=== PATIENT | male | born 1950 | race Caucasian/White ===

== ENCOUNTER → 2024-06-26 | Outpatient (CLI) | payer MEDICARE, BC, SELFPAY ==
[2024-06-26 14:23] LABS: Basophils % (Auto) 0 % (0-2.5); Eosinophils % (Auto) 1 % (0-10); Hematocrit 40.4 % (41.0-53.0); Hemoglobin 13.6 g/dL (13.5-16.0); Immature Granulocytes % (Auto) 0 % (0-0); Immature Granulocytes Auto 0.01 Thou/mm3 (0.00-0.00); Lymphocytes # (Auto) 1.2 Thou/mm3 (1.0-4.8); Lymphocytes % (Auto) 22 % (10-50); Mean Corpuscular HGB Conc 33.7 g/dl (31.0-37.0); Mean Corpuscular Hemoglobin 32.8 pg (25.0-35.0); Mean Corpuscular Volume 97 fL (80-100); Monocytes # (Auto) 0.6 Thou/mm3 (0.0-0.8); Monocytes % (Auto) 10 % (0-12); Neutrophils # (Auto) 3.9 Thou/mm3 (1.8-7.7); Neutrophils % (Auto) 68 % (37-80); Nucleated Red Blood Cell % 0 /100 WBC (0); Platelet Count 188 Thou/mm3 (140-440); RDW Standard Deviation 48.5 fL (35.1-43.9); Red Blood Count 4.15 Miln/mm3 (4.50-5.90); White Blood Count 5.7 Thou/mm3 (3.8-10.6)
[2024-06-26 14:42] LABS: Vitamin D 25 Hydroxy Total 83.3 ng/mL (7.3-40.2)
[2024-06-26 14:55] LABS: Parathyroid Hormone Intact 41.1 pg/ml (18.5-88.0)
[2024-06-26 14:58] LABS: Alanine Aminotransferase 17 U/L (10-49); Albumin, Serum 4.3 gm/dL (3.4-4.8); Alkaline Phosphatase 50 U/L (46-116); Anion Gap 6 (7-16); Aspartate Amino Transferase 20 U/L (0-34); BUN/Creatinine Ratio 24 Ratio (12-20); Bilirubin,Total 1.7 mg/dL (0.3-1.2); Blood Urea Nitrogen 26 mg/dL (9-23); Carbon Dioxide 28.6 mMol/L (20.0-31.0); Chloride 103 mMol/L (98-107); Creatinine (Component) 1.1 mg/dL (0.6-1.3); Free T4 (Free Thyroxine) 1.63 ng/dL (0.89-1.76); Globulin 2.2 gm/dL (2.3-3.5); Glucose 103 mg/dL (74-106); Osmolality,Calculated 280 (275-295); Potassium 3.6 mMol/L (3.4-5.1); Sodium 138 mMol/L (136-145); Thyroid Stimulating Hormone 0.84 uIU/mL (0.55-4.78); Total Protein 6.5 gm/dL (5.7-8.2); eGFR > 60 See Note
== END | disposition home or self-care (01) ==
PROVIDERS: PCP Family Medicine; Referring Provider Internal Medicine Endocrinology, Diabetes & Metabolism; Visit Provider Internal Medicine Endocrinology, Diabetes & Metabolism
DX: E89.0 Postprocedural hypothyroidism (principal); E21.3 Hyperparathyroidism, unspecified
CPT/HCPCS: 36415; 80053; 82306; 83970; 84439; 84443; 85025

== ENCOUNTER → 2024-07-14 | Outpatient (BNVA) | payer MEDICARE, BC, SELFPAY | END | disposition home or self-care (01) | PROVIDERS: PCP Family Medicine; Referring Provider Family Medicine; Visit Provider Urology | DX: N32.89 Other specified disorders of bladder (principal); N40.1 Benign prostatic hyperplasia with lower urinary tract symptoms; N13.8 Other obstructive and reflux uropathy; C61 Malignant neoplasm of prostate; I10 Essential (primary) hypertension | CPT/HCPCS: 52224; 81003; 96372; 99212; A4217; A4649; C1894; J3260; A9270; G0463 ==

== ENCOUNTER → 2024-07-18 | Outpatient (BNVA) | payer MEDICARE, BC, SELFPAY | END | disposition home or self-care (01) | PROVIDERS: PCP Family Medicine; Referring Provider Family Medicine; Visit Provider Urology | DX: C61 Malignant neoplasm of prostate (principal); I10 Essential (primary) hypertension; Z80.42 Family history of malignant neoplasm of prostate | CPT/HCPCS: 99212; G0463 ==

== ENCOUNTER → 2024-08-14 | Outpatient (CLI) | payer MEDICARE, BC, SELFPAY ==
--- NOTE | 2024-08-14 13:00 | XR_ITS ---
Examination: Breast ultrasound, unilateral, left complete Date and time of exam: August 14, 2024 1309 hours INDICATIONS: Onset palpable lump in the nipple region noticed beginning 6 months ago Technique: Real-time izquierdo scale ultrasonographic imaging performed left breast including all 4 quadrants as well as nipple retroareolar and axillary region. Findings: No cystic or solid mass IMPRESSION: BI-RADS Category 1: Negative study Consider diagnostic mammography follow-up
== END | disposition home or self-care (01) ==
PROVIDERS: PCP Family Medicine; Referring Provider Surgery; Visit Provider Surgery
DX: N63.42 Unspecified lump in left breast, subareolar (principal)
CPT/HCPCS: 76641

== ENCOUNTER → 2024-08-29 | Outpatient (CLI) | payer MEDICARE, BC, SELFPAY ==
[2024-08-29 09:06] LABS: Basophils % (Auto) 0 % (0-2.5); Eosinophils # (Auto) 0.1 Thou/mm3 (0.0-0.5); Eosinophils % (Auto) 2 % (0-10); Hematocrit 41.8 % (41.0-53.0); Hemoglobin 14.3 g/dL (13.5-16.0); Immature Granulocytes % (Auto) 0 % (0-0); Immature Granulocytes Auto 0.01 Thou/mm3 (0.00-0.00); Lymphocytes # (Auto) 1.3 Thou/mm3 (1.0-4.8); Lymphocytes % (Auto) 26 % (10-50); Mean Corpuscular HGB Conc 34.2 g/dl (31.0-37.0); Mean Corpuscular Hemoglobin 33.3 pg (25.0-35.0); Mean Corpuscular Volume 97 fL (80-100); Monocytes # (Auto) 0.5 Thou/mm3 (0.0-0.8); Monocytes % (Auto) 9 % (0-12); Neutrophils # (Auto) 3.2 Thou/mm3 (1.8-7.7); Neutrophils % (Auto) 63 % (37-80); Nucleated Red Blood Cell % 0 /100 WBC (0); Platelet Count 177 Thou/mm3 (140-440); RDW Standard Deviation 48.2 fL (35.1-43.9); White Blood Count 5.1 Thou/mm3 (3.8-10.6)
[2024-08-29 09:25] LABS: INR 1.1 (0.9-1.3); Partial Thromboplastin Time 27.1 Seconds (22.0-36.0); Prothrombin Time 11.6 Seconds (9.0-12.2)
[2024-08-29 09:29] LABS: Alanine Aminotransferase 20 U/L (10-49); Albumin, Serum 4.6 gm/dL (3.4-4.8); Alkaline Phosphatase 43 U/L (46-116); Anion Gap 8 (7-16); Aspartate Amino Transferase 20 U/L (0-34); BUN/Creatinine Ratio 27 Ratio (12-20); Bilirubin,Total 2.3 mg/dL (0.3-1.2); Blood Urea Nitrogen 27 mg/dL (9-23); Calcium 8.8 mg/dL (8.3-10.6); Calcium (Corrected) 8.8 mg/dL (8.5-10.1); Carbon Dioxide 30.1 mMol/L (20.0-31.0); Chloride 103 mMol/L (98-107); Globulin 2.3 gm/dL (2.3-3.5); Glucose 100 mg/dL (74-106); Osmolality,Calculated 286 (275-295); Potassium 3.5 mMol/L (3.4-5.1); Sodium 141 mMol/L (136-145); Total Protein 6.9 gm/dL (5.7-8.2); eGFR > 60 See Note
== END | disposition home or self-care (01) ==
PROVIDERS: PCP Family Medicine; Referring Provider Nurse Practitioner Family; Visit Provider Nurse Practitioner Family
DX: C61 Malignant neoplasm of prostate (principal)
CPT/HCPCS: 36415; 80053; 85025; 85610; 85730

== ENCOUNTER → 2024-09-25 | Outpatient (CLI) | payer MEDICARE, BC, SELFPAY ==
--- NOTE | 2024-09-25 09:50 | XR_ITS ---
Examination: Cystogram Fluoroscopy 7 spot fluoroscopic films of the bladder Exam date and time: September 25, 2024 11:30 AM INDICATIONS: Diagnosis malignant neoplasm prostate post prostatectomy 10 days ago TECHNIQUE AND FINDINGS: Bladder filled with 150 cc Cystografin 7 spot fluoroscopic films of the bladder today Bladder intact No ureteral reflux Fluoroscopy 0.7 minute radiation dose 52.28 milligray IMPRESSION: Intact urinary bladder
== END | disposition home or self-care (01) ==
LOC: SDIM 09:40
PROVIDERS: PCP Family Medicine; Referring Provider Urology; Visit Provider Urology
DX: C61 Malignant neoplasm of prostate (principal)
CPT/HCPCS: 51600; 74430; Q9958

== ENCOUNTER → 2024-09-25 | Outpatient (BNVA) | payer MEDICARE, BC, SELFPAY | END | disposition home or self-care (01) | PROVIDERS: PCP Family Medicine; Referring Provider Family Medicine; Visit Provider Urology | DX: N40.1 Benign prostatic hyperplasia with lower urinary tract symptoms (principal); N13.8 Other obstructive and reflux uropathy; C61 Malignant neoplasm of prostate; R97.20 Elevated prostate specific antigen [PSA]; Z90.79 Acquired absence of other genital organ(s); I10 Essential (primary) hypertension; Z46.6 Encounter for fitting and adjustment of urinary device | CPT/HCPCS: 99212; G0463 ==

== ENCOUNTER 2024-10-10 09:01 | Emergency (ER) | payer MEDICARE, BC, SELFPAY ==
--- NOTE | 2024-10-10 09:16 | XR_ITS ---
Examination: CT abdomen and pelvis without contrast. Coronal 3-D reconstructions. Sagittal 2-D reconstructions. Date and time of exam:October 02, 2024 0927 hrs. Comparison May 15, 2024 Indications: Lower abdominal pain pelvic pain difficulty urinating today CTDI: vol (mGy): 9.97 DLP: (mGycm): 650 Technique: Axial images of the abdomen have been obtained, 3 mm slice thickness Intravenous contrast material has not been administered. Low dose protocols were performed. One or more of the following dose reduction techniques were used; automated exposure control, adjustment of the mA and/or KV according to patient size, use of iterative reconstruction technique. Findings: No focal liver or splenic lesions No gallstones No pancreatic or adrenal mass Left renal cysts, the largest 5 cm 10 mm calculus medial left kidney in the renal pelvis No hydronephrosis or ureteral calculi Aortic calcification no aneurysmal dilatation Normal appendix Multiple fluid distended small bowel loops in the lower abdomen and pelvis Colonic diverticulosis Urinary bladder contracted with wall thickening up to 8 mm, large TURP defect Fluid containing right inguinal hernia Fat-containing left inguinal hernia Large right hydrocele Impression: 10 mm calculus medial left kidney No hydronephrosis or ureteral calculi Normal appendix Multiple fluid distended small bowel loops, consider ileus, enteritis, early small bowel obstruction not excluded, clinical correlation advised Contracted urinary bladder with urinary bladder wall thickening, consider cystitis Probable TURP defect Fluid containing right inguinal hernia, fat-containing left inguinal hernia Recommend testicular sonography follow-up to confirm large right hydrocele
--- NOTE | 2024-10-10 09:16 | XR_ITS ---
Examination: Testicular sonography complete Technique: Grayscale sonographic images testes, assessment arterial inflow venous outflow Doppler spectral analysis carful analysis Exam date and time: October 10, 2024 1004 hrs. Indications: Right prostatectomy with lung in the right testicular region post September 16, 2023 hernia repair Findings: Right testis 3.5 cm epididymis 1.6 cm Arterial flow testicle. No testicular mass Large right hydrocele Right groin hernia defect with bowel in the right scrotum Left testis 3.8 cm epididymis 1.1 cm Arterial flow testicle. No testicular mass Moderate left lateral varicoceles Minimal left hydrocele Impression: No testicular torsion or testicular mass Large right hydrocele Right groin hernia defect containing bowel Moderate left lateral varicoceles
--- NOTE | 2024-10-10 09:17 | PD.EDRME ---
Rapid Medical Screening Exam [facility] Arrival date/time: 10/10/24 09:01 74-year-old male with a history of hypertension presents to the emergency room with a chief complaint of testicular swelling and right pelvic pain x 3 days. Patient was seen this morning at his urologist office but was sent to the emergency room by the nurse at the clinic since the urologist is out of office. Patient denies any tenderness to the testicles but there is significant swelling. I have greeted and performed a focused initial assessment of this patient. A comprehensive ED assessment and evaluation of the patient, analysis of all test results, and completion of the medical decision making process will be conducted by additional ED providers. Chief Complaint: Urogenital-Male Vital signs reviewed by provider: Yes
[2024-10-10 09:29] VITALS: BP 125/90; PULSE 75; RESP 17; TEMP 36.6; O2SAT 97; BMI 26.2
[2024-10-10 09:51] LABS: Basophils % (Auto) 0 % (0-2.5); Eosinophils # (Auto) 0.1 Thou/mm3 (0.0-0.5); Eosinophils % (Auto) 2 % (0-10); Hematocrit 39.7 % (41.0-53.0); Hemoglobin 13.5 g/dL (13.5-16.0); Immature Granulocytes % (Auto) 0 % (0-0); Immature Granulocytes Auto 0.01 Thou/mm3 (0.00-0.00); Lymphocytes # (Auto) 1.2 Thou/mm3 (1.0-4.8); Lymphocytes % (Auto) 25 % (10-50); Mean Corpuscular Hemoglobin 33.1 pg (25.0-35.0); Mean Corpuscular Volume 97 fL (80-100); Monocytes # (Auto) 0.6 Thou/mm3 (0.0-0.8); Monocytes % (Auto) 12 % (0-12); Neutrophils # (Auto) 2.9 Thou/mm3 (1.8-7.7); Neutrophils % (Auto) 61 % (37-80); Nucleated Red Blood Cell % 0 /100 WBC (0); Platelet Count 272 Thou/mm3 (140-440); RDW Standard Deviation 47.8 fL (35.1-43.9); Red Blood Count 4.08 Miln/mm3 (4.50-5.90); White Blood Count 4.8 Thou/mm3 (3.8-10.6)
[2024-10-10 10:08] LABS: Alanine Aminotransferase 13 U/L (10-49); Albumin, Serum 4.5 gm/dL (3.4-4.8); Albumin/Globulin Ratio 1.7 (1.2-2.2); Alkaline Phosphatase 46 U/L (46-116); Anion Gap 9 (7-16); Aspartate Amino Transferase 17 U/L (0-34); BUN/Creatinine Ratio 17 Ratio (12-20); Bilirubin,Total 1.2 mg/dL (0.3-1.2); Blood Urea Nitrogen 20 mg/dL (9-23); Calcium 9.2 mg/dL (8.3-10.6); Calcium (Corrected) 9.2 mg/dL (8.5-10.1); Carbon Dioxide 28.9 mMol/L (20.0-31.0); Chloride 104 mMol/L (98-107); Creatinine (Component) 1.2 mg/dL (0.6-1.3); Estimated Creatinine Clearance 57.5 mL/min (>60); Globulin 2.7 gm/dL (2.3-3.5); Glucose 109 mg/dL (74-106); Osmolality,Calculated 286 (275-295); Potassium 3.5 mMol/L (3.4-5.1); Sodium 142 mMol/L (136-145); Total Protein 7.2 gm/dL (5.7-8.2); eGFR > 60 See Note
[2024-10-10 11:50] VITALS: BP 133/81; PULSE 69; RESP 16; O2SAT 97
--- NOTE | 2024-10-10 11:57 | PD.EDMALE ---
ED Male Genitalurinary RME/HPI General Chief complaint: Urogenital-Male Stated complaint: Lump in scrotum X 2 weeks Time Seen by Provider: 10/10/24 11:12 Source: patient Arrival date/time: 10/10/24 09:01 This is a 74-year-old male history of hypertension, hypothyroidism, seasonal allergies, recent prostatectomy, and right inguinal hernia repair. Patient reports he had prostatectomy and right inguinal hernia repair on 09/16/2024 at [facility]. Since surgery he had right scrotal hernia swelling reports signs of pineapple however swelling has come down. Reports that for the last 2 weeks noticed the swelling has not completely came down and now is a size of a orange. He has not been able to follow-up with his urologist prompting his ED visit today. He denies any other symptoms no abdominal pain no nausea no vomiting no fever no dysuria hematuria. Does report that 1 week ago he had his catheter removed by urology he has been urinating and dripping no complaints. Mode of arrival: ambulatory RME / HPI RME / HPI Narrative: 10/10/24 09:01 74-year-old male with a history of hypertension presents to the emergency room with a chief complaint of testicular swelling and right pelvic pain x 3 days. Patient was seen this morning at his urologist office but was sent to the emergency room by the nurse at the clinic since the urologist is out of office. Patient denies any tenderness to the testicles but there is significant swelling. I have greeted and performed a focused initial assessment of this patient. A comprehensive ED assessment and evaluation of the patient, analysis of all test results, and completion of the medical decision making process will be conducted by additional ED providers. Related Data Home Medications ?Medication ?Instructions ?Recorded ?Confirmed aliskiren 150 mg tablet (Tekturna) 150 mg PO QDAY #0 tabs 07/26/13 09/25/24 montelukast 10 mg tablet 10 mg PO HS #0 tabs 07/26/13 09/25/24 (Singulair) saw palmetto 500 mg capsule 450 mg PO DAILY 12/20/18 09/25/24 ascorbic acid (vitamin C) 1,000 mg 1,000 mg PO QDAY 10/22/23 09/25/24 tablet,extended release (Vitamin C ER) cholecalciferol (vitamin D3) 25 25 mcg PO QDAY 10/22/23 09/25/24 mcg (1,000 unit) capsule (Vitamin D3) hydrochlorothiazide 25 mg tablet 25 mg PO QDAY 10/22/23 09/25/24 levothyroxine 150 mcg tablet 150 mcg PO QDAY 10/22/23 09/25/24 (Synthroid) Allergies Allergy/AdvReac Type Severity Reaction Status Date / Time Penicillins Allergy Intermediate LIFE Verified 10/10/24 09:07 THREATENING Review of Systems Review of Systems Systems Reviewed: All systems reviewed, normal except as documented Narrative Review of Systems: Gen: No fever, no chills, no weight loss EYES: No discharge, no visual changes, no pain HEENT: No ear pain, no congestion, no sore throat PULM: No shortness of breath, no cough, no congestion CV: No chest pain, no dyspnea on exertion, no palpitations GI: No nausea, no vomiting, no diarrhea, no pain, no constipation : No frequency, no urgency, no dysuri, right testicular swelling. A Musc/skel: No joint pain, no back pain Skin: No rash Psyc: No hallucinations, no depression Heme/Lymph: No easy bleeding or bruising tendencies Neuro: No weakness, no headache ED Exam Narrative Physical exam: General: Sittiing in Exam table in no acute distress, answering questions appropriately HENT: normocephalic, atraumatic, EOMI, PERRLA, moist mucous membranes Chest: chest wall is nontender Cardiac: regular rate and rhythm, normal S1 and S2, no murmurs, rubs, or gallops, capillary refill ?2 seconds Pulmonary: clear to auscultation bilaterally, no wheezing, crackles, or rhonchi Abdominal: active bowel sounds, soft, nontender, nondistended Neuro: A&OX3, CN II-XII intact, sensation grossly intact bilaterally in UE and LE. Male : Moderate swelling right testicular, no tender to palpation no erythema Skin: no rashes, no ecchymosis Ext: no lower extremity edema Course Quality Measures none Orders Category Date Time Status CT abdomen pelvis wo con Stat Exams 10/10/24 09:16 Completed US testicular Stat Exams 10/10/24 09:16 Completed CBC Stat Lab 10/10/24 09:35 Completed CMP [Comprehensive Metabolic Panel] Stat Lab 10/10/24 09:35 Completed UA, C/S IF [Urinalysis, C/S if Indicated] Stat Lab 10/10/24 11:49 Completed Urine Culture Stat Lab 10/10/24 11:49 Completed Vital Signs Vital signs: Vital Signs Temperature 97.8 F 10/10/24 09:29 Pulse Rate 75 10/10/24 09:29 Respiratory Rate 17 10/10/24 09:29 Blood Pressure 125/90 H 10/10/24 09:29 Pulse Oximetry (%) 97 10/10/24 09:29 Oxygen Delivery Method Room Air 10/10/24 09:29 Urogenital - Male MDM Narrative MDM Narrative:: 74-year-old male evaluated in the emergency department for complaints of swelling right testicular status post surgery 3 weeks ago. Upon assessment patient is awake and alert in no distress. Patient denies any abdominal pain no nausea no vomiting no fever. He does report he walks up to 3 miles has been feeling well however noticed that the swelling has not improved. He did attempt to see his urologist however he was not in his office prompting his ED visit today Patient's labs CBC no leukocytosis no bandemia. CMP no acute renal failure no electrolyte imbalance. CT demonstrates large hydrocele, with TURP defect, and right inguinal fluid possibly postop changes. Upon examinations patient testicle is size of an orange however not tender not red erythemic no signs of possible infection . I did advise patient he can follow-up with urologist on Sunday. Advised that this any changes symptoms nausea fever severe pain to return to the emergency department for further evaluation. Patient data External records reviewed:: [facility] previous records Clinical information provided by:: patient Social determinants that could affect healthcare access:: none Patient has the following chronic illnesses:: See HPI How is presenting disease/condition affected by chronic disease/condition?: exacerbated by Evaluation data The following diagnostics were reviewed and interpreted by me:: lab results and radiology exam(s) Lab and/or radiology exams considered but not ordered:: No Interpretation Summary: Examination: Testicular sonography complete Technique: Grayscale sonographic images testes, assessment arterial inflow venous outflow Doppler spectral analysis carful analysis Exam date and time: October 10, 2024 1004 hrs. Indications: Right prostatectomy with lung in the right testicular region post September 16, 2023 hernia repair Findings: Right testis 3.5 cm epididymis 1.6 cm Arterial flow testicle. No testicular mass Large right hydrocele Right groin hernia defect with bowel in the right scrotum Left testis 3.8 cm epididymis 1.1 cm Arterial flow testicle. No testicular mass Moderate left lateral varicoceles Minimal left hydrocele Impression: No testicular torsion or testicular mass Large right hydrocele Right groin hernia defect containing bowel Moderate left lateral varicoceles Examination: CT abdomen and pelvis without contrast. Coronal 3-D reconstructions. Sagittal 2-D reconstructions. Date and time of exam:October 02, 2024 0927 hrs. Comparison May 15, 2024 Indications: Lower abdominal pain pelvic pain difficulty urinating today CTDI: vol (mGy): 9.97 DLP: (mGycm): 650 Technique: Axial images of the abdomen have been obtained, 3 mm slice thickness Intravenous contrast material has not been administered. Low dose protocols were performed. One or more of the following dose reduction techniques were used; automated exposure control, adjustment of the mA and/or KV according to patient size, use of iterative reconstruction technique. Findings: No focal liver or splenic lesions No gallstones No pancreatic or adrenal mass Left renal cysts, the largest 5 cm 10 mm calculus medial left kidney in the renal pelvis No hydronephrosis or ureteral calculi Aortic calcification no aneurysmal dilatation Normal appendix Multiple fluid distended small bowel loops in the lower abdomen and pelvis Colonic diverticulosis Urinary bladder contracted with wall thickening up to 8 mm, large TURP defect Fluid containing right inguinal hernia Fat-containing left inguinal hernia Large right hydrocele Impression: 10 mm calculus medial left kidney No hydronephrosis or ureteral calculi Normal appendix Multiple fluid distended small bowel loops, consider ileus, enteritis, early small bowel obstruction not excluded, clinical correlation advised Contracted urinary bladder with urinary bladder wall thickening, consider cystitis Probable TURP defect Fluid containing right inguinal hernia, fat-containing left inguinal hernia Recommend testicular sonography follow-up to confirm large right hydrocele Medications / Prescriptions Medications or Prescriptions considered but not ordered:: no Medication administrations:: no Consultations Consultation(s) initiated? (list below): No Diagnosis Urogenital Male Differential Diagnosis: urinary tract infection, urethritis, epididymitis, prostatitis, acute retention of urine and inguinal hernia Most likely diagnosis given after review of the tests above:: Large hydrocele, postop changes. Admission Indicated Admission indicated?: not indicated Admission Request Was there a request for admission?: No Disposition Plan Disposition Plan: Discharge Discharge Attestation Discharge Attestation: The patient and all family members were given an opportunity to ask questions and understood the discharge instructions. Discharge instructions specifically effects, indications for sooner follow up or return to the emergency department, and the expected course of current diagnosis. Patient condition: Stable Discharge Plan Plan Patient Disposition: HOME (Self Care) Patient condition on transfer: Stable Prescriptions/Referrals Prescriptions/Med Rec: No Action montelukast [Singulair] 10 MG tablet 10 mg PO HS Qty: 0 aliskiren [Tekturna] 150 MG tablet 150 mg PO QDAY Qty: 0 saw palmetto 500 mg Capsule 450 mg PO DAILY Vitamin C 1,000 mg Tablet Extended Release 1,000 mg PO QDAY levothyroxine [Synthroid] 150 mcg tablet 150 mcg PO QDAY hydrochlorothiazide 25 mg tablet 25 mg PO QDAY Patient Comments: TAKE 1 TABLET BY MOUTH EVERY DAY IN THE MORNING cholecalciferol (vitamin D3) [Vitamin D3] 25 mcg (1,000 unit) Capsule 25 mcg PO QDAY Referrals: Ratna Whitlock MD [Primary Care Provider] - In 1 week Problem List Clinical Impression: Urinary tract infection, Hydrocele, acquired, Inguinal hernia, Post-operative complication Patient/Caregiver Discharge Instructions Discharge Activity: activity as tolerated Education Materials: ED Hydrocele, Type Not Specified, ED Bladder Infection, Male (Adult) Additional Instructions: It is very important that you keep an appointment with Dr. Singh on Sunday. Please start the antibiotics he sent to the pharmacy. I will be a culture pending which he needs to follow-up on. As discussed you will need possibly a repeat imaging to follow the hydrocele if improving. However if you experience any changes in condition, nausea vomiting fever severe pain please return to the emergency department immediately or call 911. Print Language: Scottish Stand Alone Forms: Jeanine Award Info., Patient Portal Info Letter PA/SOHA Supervising Physician LAUREANO/SOHA Supervising Physician: Srinivasa
[2024-10-10 11:58] LABS: Collection Type, Urine Clean Catch
[2024-10-10 12:26] LABS: Bilirubin,Urine Negative (Negative); Blood,Urine Negative (Negative); Clarity,Urine Turbid (Clear/Hazy); Color,Urine Yellow (Lt Yel-Yel); Glucose, Urine Negative (Negative); Hyaline Casts,Urine < 1 /hpf (0-1); Ketones,Urine Negative (Negative); Leukocyte Esterase,Urine Positive (Negative); Nitrite,Urine Negative (Negative); Protein,Urine Trace (Neg - Trace); RBC,Urine 3 /hpf (0-3); Specific Gravity,Urine 1.018 (1.001-1.035); Squamous Epithelial Cell,Urine < 1 /hpf (0-5); Urobilinogen,Urine Negative mg/dL (0.0-1.0); WBC,Urine 100 /hpf (0-5)
[2024-10-10 12:35] LABS: Culture Indicated,Urine Yes
== END 2024-10-10 13:11 | disposition home or self-care (01) ==
PROVIDERS: Nurse Practitioner Family; Emergency Provider Emergency Medicine; PCP Family Medicine
DX: N39.0 Urinary tract infection, site not specified (principal); N43.3 Hydrocele, unspecified; K40.20 Bilateral inguinal hernia, without obstruction or gangrene, not specified as recurrent; I86.1 Scrotal varices; N20.0 Calculus of kidney; N32.89 Other specified disorders of bladder; K63.89 Other specified diseases of intestine; I10 Essential (primary) hypertension; E03.9 Hypothyroidism, unspecified; Z90.79 Acquired absence of other genital organ(s)
CPT/HCPCS: 36415; 74176; 76870; 80053; 81001; 85025; 87086; 99284

== ENCOUNTER → 2024-11-05 | Outpatient (CLI) | payer MEDICARE, BC, SELFPAY ==
[2024-11-05 14:38] LABS: Prostate Specific Antigen < 0.10 ng/mL (0-4.00)
== END | disposition home or self-care (01) ==
LOC: COPL 13:50
PROVIDERS: PCP Family Medicine; Referring Provider Urology; Visit Provider Urology
DX: C61 Malignant neoplasm of prostate (principal)
CPT/HCPCS: 36415; 84153

== ENCOUNTER → 2024-11-17 | Outpatient (BNVA) | payer MEDICARE, BC, SELFPAY | END | disposition home or self-care (01) | PROVIDERS: PCP Family Medicine; Referring Provider Family Medicine; Visit Provider Urology | DX: N40.1 Benign prostatic hyperplasia with lower urinary tract symptoms (principal); N13.8 Other obstructive and reflux uropathy; N39.498 Other specified urinary incontinence; C61 Malignant neoplasm of prostate; N52.9 Male erectile dysfunction, unspecified; I10 Essential (primary) hypertension | CPT/HCPCS: 81003; 99212; G0463 ==

== ENCOUNTER → 2024-12-25 | Outpatient (CLI) | payer MEDICARE, BC, SELFPAY ==
[2024-12-25 14:12] LABS: Basophils % (Auto) 1 % (0-2.5); Eosinophils % (Auto) 1 % (0-10); Hematocrit 36.9 % (41.0-53.0); Hemoglobin 12.7 g/dL (13.5-16.0); Immature Granulocytes % (Auto) 0 % (0-0); Immature Granulocytes Auto 0.01 Thou/mm3 (0.00-0.00); Lymphocytes # (Auto) 0.9 Thou/mm3 (1.0-4.8); Lymphocytes % (Auto) 21 % (10-50); Mean Corpuscular HGB Conc 34.4 g/dl (31.0-37.0); Mean Corpuscular Hemoglobin 32.7 pg (25.0-35.0); Mean Corpuscular Volume 95 fL (80-100); Monocytes # (Auto) 0.4 Thou/mm3 (0.0-0.8); Monocytes % (Auto) 10 % (0-12); Neutrophils # (Auto) 2.7 Thou/mm3 (1.8-7.7); Neutrophils % (Auto) 68 % (37-80); Nucleated Red Blood Cell % 0 /100 WBC (0); Platelet Count 169 Thou/mm3 (140-440); RDW Standard Deviation 44.5 fL (35.1-43.9); Red Blood Count 3.88 Miln/mm3 (4.50-5.90)
[2024-12-25 14:35] LABS: Parathyroid Hormone Intact 34.9 pg/ml (18.5-88.0); Prostate Specific Antigen < 0.10 ng/mL (0-4.00)
[2024-12-25 14:38] LABS: Follicle Stimulating Hormone 26.14 mIU/mL (See Note); Vitamin D 25 Hydroxy Total 68.3 ng/mL (7.3-40.2)
[2024-12-25 14:39] LABS: Alanine Aminotransferase 14 U/L (10-49); Albumin, Serum 4.1 gm/dL (3.4-4.8); Albumin/Globulin Ratio 1.9 (1.2-2.2); Alkaline Phosphatase 47 U/L (46-116); Anion Gap 6 (7-16); Aspartate Amino Transferase 17 U/L (0-34); BUN/Creatinine Ratio 20 Ratio (12-20); Blood Urea Nitrogen 20 mg/dL (9-23); Calcium 8.5 mg/dL (8.3-10.6); Calcium (Corrected) 8.5 mg/dL (8.5-10.1); Carbon Dioxide 28.4 mMol/L (20.0-31.0); Chloride 105 mMol/L (98-107); Free T4 (Free Thyroxine) 1.44 ng/dL (0.89-1.76); Globulin 2.2 gm/dL (2.3-3.5); Glucose 100 mg/dL (74-106); Osmolality,Calculated 280 (275-295); Potassium 3.9 mMol/L (3.4-5.1); Sodium 139 mMol/L (136-145); Thyroid Stimulating Hormone 0.48 uIU/mL (0.55-4.78); Total Protein 6.3 gm/dL (5.7-8.2); eGFR > 60 See Note
== END | disposition home or self-care (01) ==
LOC: COPL 13:48
PROVIDERS: PCP Family Medicine; Referring Provider Urology; Visit Provider Urology
DX: E89.0 Postprocedural hypothyroidism (principal); N62 Hypertrophy of breast
CPT/HCPCS: 36415; 80053; 82306; 82670; 83001; 83002; 83970; 84146; 84153; 84402; 84403; 84439; 84443; 85025

== ENCOUNTER → 2025-01-16 | Outpatient (BNVA) | payer MEDICARE, BC, SELFPAY | END | disposition home or self-care (01) | PROVIDERS: PCP Family Medicine; Referring Provider Family Medicine; Visit Provider Urology | DX: C61 Malignant neoplasm of prostate (principal); N52.9 Male erectile dysfunction, unspecified; I10 Essential (primary) hypertension | CPT/HCPCS: 81003; 99212; G0463 ==

== ENCOUNTER → 2025-02-25 | Outpatient (CLI) | payer MEDICARE, BC, SELFPAY ==
[2025-02-25 14:13] LABS: Basophils # (Auto) 0.0 Thou/mm3 (0.0-0.2); Basophils % (Auto) 1 % (0-2.5); Eosinophils # (Auto) 0.0 Thou/mm3 (0.0-0.5); Eosinophils % (Auto) 1 % (0-10); Hematocrit 37.8 % (41.0-53.0); Hemoglobin 12.8 g/dL (13.5-16.0); Immature Granulocytes Auto 0.01 Thou/mm3 (0.00-0.00); Lymphocytes # (Auto) 1.0 Thou/mm3 (1.0-4.8); Lymphocytes % (Auto) 23 % (10-50); Mean Corpuscular HGB Conc 33.9 g/dl (31.0-37.0); Mean Corpuscular Hemoglobin 32.7 pg (25.0-35.0); Mean Corpuscular Volume 97 fL (80-100); Monocytes # (Auto) 0.5 Thou/mm3 (0.0-0.8); Monocytes % (Auto) 11 % (0-12); Neutrophils # (Auto) 2.8 Thou/mm3 (1.8-7.7); Neutrophils % (Auto) 64 % (37-80); Nucleated Red Blood Cell # 0.00 Thou/mm3 (0.00-0.00); Nucleated Red Blood Cell % 0 /100 WBC (0); Platelet Count 174 Thou/mm3 (140-440); RDW Standard Deviation 48.5 fL (35.1-43.9); Red Blood Count 3.91 Miln/mm3 (4.50-5.90); White Blood Count 4.3 Thou/mm3 (3.8-10.6)
[2025-02-25 14:31] LABS: Vitamin D 25 Hydroxy Total 74.0 ng/mL (7.3-40.2)
[2025-02-25 14:32] LABS: Albumin, Serum 4.1 gm/dL (3.4-4.8); Anion Gap 12 (7-16); BUN/Creatinine Ratio 16 Ratio (12-20); Blood Urea Nitrogen 18 mg/dL (9-23); Calcium 8.4 mg/dL (8.3-10.6); Calcium (Corrected) 8.4 mg/dL (8.5-10.1); Carbon Dioxide 27.1 mMol/L (20.0-31.0); Chloride 105 mMol/L (98-107); Creatinine (Component) 1.1 mg/dL (0.6-1.3); Glucose 97 mg/dL (74-106); Osmolality,Calculated 288 (275-295); Phosphorous 3.0 mg/dL (2.4-5.1); Potassium 4.1 mMol/L (3.4-5.1); Sodium 144 mMol/L (136-145); eGFR > 60 See Note
== END | disposition home or self-care (01) ==
LOC: COPL 12:33
PROVIDERS: PCP Family Medicine; Referring Provider Internal Medicine; Visit Provider Internal Medicine
DX: I12.9 Hypertensive chronic kidney disease with stage 1 through stage 4 chronic kidney disease, or unspecified chronic kidney disease (principal); N18.2 Chronic kidney disease, stage 2 (mild); N28.1 Cyst of kidney, acquired; E55.9 Vitamin D deficiency, unspecified
CPT/HCPCS: 36415; 80069; 82306; 85025

== ENCOUNTER → 2025-04-22 | Outpatient (CLI) | payer MEDICARE, BC, SELFPAY ==
[2025-04-22 14:37] LABS: Prostate Specific Antigen < 0.10 ng/mL (0-4.00)
== END | disposition home or self-care (01) ==
LOC: COPL 13:10
PROVIDERS: PCP Family Medicine; Referring Provider Urology; Visit Provider Urology
DX: Z12.5 Encounter for screening for malignant neoplasm of prostate (principal)
CPT/HCPCS: 36415; 84153

== ENCOUNTER → 2025-05-01 | Outpatient (BNVA) | payer MEDICARE, BC, SELFPAY | END | disposition home or self-care (01) | PROVIDERS: PCP Family Medicine; Referring Provider Family Medicine; Visit Provider Urology | DX: C61 Malignant neoplasm of prostate (principal); N52.9 Male erectile dysfunction, unspecified; I10 Essential (primary) hypertension; Z87.442 Personal history of urinary calculi | CPT/HCPCS: 81003; 99212; G0463 ==

== ENCOUNTER → 2025-06-18 | Outpatient (CLI) | payer MEDICARE, BC, SELFPAY ==
[2025-06-18 16:03] LABS: Basophils # (Auto) 0.0 Thou/mm3 (0.0-0.2); Basophils % (Auto) 0 % (0-2.5); Eosinophils # (Auto) 0.0 Thou/mm3 (0.0-0.5); Eosinophils % (Auto) 0 % (0-10); Hematocrit 37.6 % (41.0-53.0); Hemoglobin 12.5 g/dL (13.5-16.0); Immature Granulocytes Auto 0.02 Thou/mm3 (0.00-0.00); Lymphocytes # (Auto) 0.7 Thou/mm3 (1.0-4.8); Lymphocytes % (Auto) 8 % (10-50); Mean Corpuscular HGB Conc 33.2 g/dl (31.0-37.0); Mean Corpuscular Hemoglobin 33.0 pg (25.0-35.0); Mean Corpuscular Volume 99 fL (80-100); Monocytes # (Auto) 0.8 Thou/mm3 (0.0-0.8); Monocytes % (Auto) 10 % (0-12); Neutrophils # (Auto) 7.1 Thou/mm3 (1.8-7.7); Neutrophils % (Auto) 81 % (37-80); Nucleated Red Blood Cell # 0.00 Thou/mm3 (0.00-0.00); Nucleated Red Blood Cell % 0 /100 WBC (0); Platelet Count 263 Thou/mm3 (140-440); RDW Standard Deviation 46.7 fL (35.1-43.9); Red Blood Count 3.79 Miln/mm3 (4.50-5.90); White Blood Count 8.7 Thou/mm3 (3.8-10.6)
[2025-06-18 16:18] LABS: Parathyroid Hormone Intact 36.0 pg/ml (18.5-88.0)
[2025-06-18 16:23] LABS: Follicle Stimulating Hormone 24.56 mIU/mL (See Note); Vitamin D 25 Hydroxy Total 59.9 ng/mL (7.3-40.2)
[2025-06-18 16:24] LABS: Alanine Aminotransferase 12 U/L (10-49); Albumin, Serum 4.6 gm/dL (3.4-4.8); Albumin/Globulin Ratio 2.2 (1.2-2.2); Alkaline Phosphatase 47 U/L (46-116); Anion Gap 11 (7-16); Aspartate Amino Transferase 19 U/L (0-34); BUN/Creatinine Ratio 14 Ratio (12-20); Bilirubin,Total 1.4 mg/dL (0.3-1.2); Blood Urea Nitrogen 17 mg/dL (9-23); Calcium 8.8 mg/dL (8.3-10.6); Calcium (Corrected) 8.8 mg/dL (8.5-10.1); Carbon Dioxide 26.5 mMol/L (20.0-31.0); Chloride 104 mMol/L (98-107); Creatinine (Component) 1.2 mg/dL (0.6-1.3); Free T4 (Free Thyroxine) 1.31 ng/dL (0.89-1.76); Globulin 2.1 gm/dL (2.3-3.5); Glucose 126 mg/dL (74-106); Osmolality,Calculated 284 (275-295); Potassium 3.4 mMol/L (3.4-5.1); Sodium 141 mMol/L (136-145); Thyroid Stimulating Hormone 0.80 uIU/mL (0.55-4.78); Total Protein 6.7 gm/dL (5.7-8.2); eGFR > 60 See Note
[2025-06-25 06:41] LABS: Albumin 3.9 g/dL (3.6-5.1); Estradiol, Ultrasensitive* 31 pg/mL (< OR = 29); Luteinizing Hormone* 14.5 mIU/mL (1.6-15.2); Prolactin* 8.0 ng/mL (2.0-18.0); SHBG 44 nmol/L (22-77); Testosterone, Bioavailable 47.2 ng/dL (15.0-150.0); Testosterone, Free 26.3 pg/mL (6.0-73.0); Testosterone,Total 259 ng/dL (250-1100)
== END | disposition home or self-care (01) ==
LOC: COPL 14:40
PROVIDERS: PCP Family Medicine; Referring Provider Nurse Practitioner Family; Visit Provider Nurse Practitioner Family
DX: N62 Hypertrophy of breast (principal); E89.0 Postprocedural hypothyroidism
CPT/HCPCS: 36415; 80053; 82040; 82306; 82670; 83001; 83002; 83970; 84146; 84270; 84403; 84439; 84443; 85025

== ENCOUNTER → 2025-07-20 | Outpatient (CLI) | payer MEDICARE, BC, SELFPAY ==
[2025-07-20 14:32] LABS: Prostate Specific Antigen < 0.10 ng/mL (0-4.00)
== END | disposition home or self-care (01) ==
LOC: COPL 13:13
PROVIDERS: PCP Family Medicine; Referring Provider Urology; Visit Provider Urology
DX: C61 Malignant neoplasm of prostate (principal)
CPT/HCPCS: 36415; 84153

== ENCOUNTER → 2025-07-24 | Outpatient (BNVA) | payer MEDICARE, BC, SELFPAY | END | disposition home or self-care (01) | PROVIDERS: PCP Family Medicine; Referring Provider Family Medicine; Visit Provider Urology | DX: C61 Malignant neoplasm of prostate (principal); N52.9 Male erectile dysfunction, unspecified; Z90.79 Acquired absence of other genital organ(s); Z80.42 Family history of malignant neoplasm of prostate | CPT/HCPCS: 81003; 99212; G0463 ==